=== PATIENT | female | born 1960 | race Caucasian/White ===

== ENCOUNTER 2021-06-21 17:19 | Emergency (ER) | payer BC ==
[~2021-06-21] VITALS: Ht 162.6 cm; Wt 74.8 kg
[2021-06-21 18:41] LABS: ABSOLUTE NEUTROPHILS 3.7 thou/uL (1.4-8.2); BASOPHILS 0.4 % (0.0-2.0); HEMATOCRIT 40.4 % (37.0-47.0); HEMOGLOBIN 14.2 gm/dL (12.0-15.0); LYMPHOCYTES 27.7 % (24.0-44.0); MCH 31.4 pg (26.0-34.0); MCHC 35.1 g/dL (28.0-37.0); MCV 89.7 fL (80.0-100.0); MONOCYTES 8.2 % (1.0-8.0); PLATELET COUNT 304 thou/uL (150-400); POLYS 60.7 % (36.0-66.0); RDW 13.2 % (10.5-14.5); WBC 6.2 thou/uL (4.0-11.0)
[2021-06-21 20:39] LABS: CALCIUM 8.9 mg/dL (8.5-10.1); CREATININE 0.8 mg/dL (0.6-1.0); POTASSIUM 4.3 mmol/L (3.5-5.1)
[2021-06-21 20:49] LABS: ALBUMIN 3.7 g/dL (3.4-5.0); TOTAL BILIRUBIN 0.1 mg/dL (0.2-1.0); TOTAL PROTEIN 7.2 g/dL (6.4-8.2)
[2021-06-21 21:17] VITALS: BP 141/82
[2021-06-21] MEDS ORDERED: METHOCARBAMOL500 M2 PO (21:17)
[2021-06-21] MEDS ORDERED: NAPROSYN500 MG PO (21:17)
--- NOTE | 2021-06-22 12:58 | EKG ---
[place] [address] [facility] [place] [place] [address] ELECTROCARDIOGRAM REPORT Name: AGUS CONTRERAS Room #: [facility]Danitza#: [id number] Admission: 06/21/21 Attend Phys: Discharge: 06/21/21 Date of : 60 Report #: [id number] [facility] ED Test Date: 2021-06-21 Test Time: 17:34:13 Pat Name: AGUS CONTRERAS Department: Room: Gender: F [employer]: NATE : 1960 Requested By: Kristina Guerrero Order Number: [id number] MD: Jay Yoo Measurements Intervals [place] Rate: 78 P: 63 UT: 145 QRS: 40 QRSD: 88 T: 50 QT: 386 QTc: 440 Interpretive Statements Sinus rhythm Low voltage, precordial leads No previous ECG available for comparison Electronically Signed On 06-22-2021 12:58:06 PSYCHIATRIST by Jay Yoo [email or web address] <ELECTRONICALLY SIGNED> By: Jay Yoo MD, [facility] 06/22/21 [id number] [id number] 1734 Jay Yoo MD, FACC /EPI
== END 2021-06-21 21:25 | disposition home or self-care (01) ==
LOC: ER 17:19
PROVIDERS: Nurse Practitioner
DX: S46.911A Strain of unspecified muscle, fascia and tendon at shoulder and upper arm level, right arm, initial encounter (principal); I10 Essential (primary) hypertension; Z88.0 Allergy status to penicillin; X50.0XXA Overexertion from strenuous movement or load, initial encounter; Y93.89 Activity, other specified; Y92.89 Other specified places as the place of occurrence of the external cause; Y99.8 Other external cause status